=== PATIENT | male | born 1980 | race Caucasian/White ===

== ENCOUNTER 2016-10-04 22:01 | Emergency (ER) | payer BC, OTHER ==
[2016-10-05] MEDS ORDERED: DIAZEPAM 5 MG TAB ONE (00:38)
[2016-10-05] MEDS ORDERED: DILAUDID 1 MG/ML AMP ONE (00:39)
== END 2016-10-05 02:00 | disposition home or self-care (01) ==
LOC: ER 22:01
DX: S16.1XXA Strain of muscle, fascia and tendon at neck level, initial encounter (principal); M47.22 Other spondylosis with radiculopathy, cervical region; F17.290 Nicotine dependence, other tobacco product, uncomplicated
CPT/HCPCS: 72050; 96372